=== PATIENT | female | born 1955 | race Caucasian/White ===

== ENCOUNTER 2016-05-26 09:19 | Observation (INO) | payer BC ==
[2016-05-26 10:03] LABS: HEMOGLOBIN 13.3 gm/dl (12.3-15.3); RED BLOOD COUNT 4.02 M/UL (4.00-5.10); WHITE BLOOD COUNT 5.6 K/UL (4.5-11.0)
[2016-05-26 10:27] LABS: BUN/CREATININE RATIO 15 (0-10)
[2016-05-26] MEDS ORDERED: GLUCOPHAGE 500500 MG PO (17:18)
[2016-05-26] MEDS ORDERED: PRILOSEC10 M1 PO (17:19)
[2016-05-26] MEDS ORDERED: GLUCOTROL 10 MG10 MG PO (17:19)
[2016-05-26] MEDS ORDERED: LISINOPRIL10 MG PO (17:20)
[2016-05-26] MEDS ORDERED: ZANTAC150 MG PO (17:21)
[2016-05-26] MEDS ORDERED: IBUPROFEN600 MG PO (17:21)
[2016-05-26] MEDS ORDERED: CLARITIN-D (12 H1 EA PO (17:21)
[2016-05-26 17:24] LABS: BUN/CREATININE RATIO 16 (0-10)
[2016-05-27 05:43] LABS: HEMOGLOBIN 12.8 gm/dl (12.3-15.3); RED BLOOD COUNT 3.88 M/UL (4.00-5.10); WHITE BLOOD COUNT 4.5 K/UL (4.5-11.0)
[2016-05-27 06:05] LABS: BUN/CREATININE RATIO 20 (0-10)
[2016-05-27] MEDS ORDERED: ASPIRIN EC81 MG PO (16:11)
[2016-05-27] MEDS ORDERED: LOPRESSOR 25 MG25 MG PO (16:12)
[2016-05-27] MEDS ORDERED: PRAVASTATIN SOD20 MG PO (16:12)
[2016-05-27] MEDS ORDERED: NITROSTAT0.4 MG SL (16:13)
== END 2016-05-27 17:50 | disposition home or self-care (01) ==
LOC: ER1 09:19 → ZEROF 11:20 → MED SURG 4 16:01 → M/S 16:14 → MED SURG 4 05-27 17:50
PROVIDERS: Emergency Medicine; Family Medicine; ADMIT Family Medicine
DX: I10 Essential (primary) hypertension (principal); R94.39 Abnormal result of other cardiovascular function study; E11.9 Type 2 diabetes mellitus without complications; E78.5 Hyperlipidemia, unspecified; J30.9 Allergic rhinitis, unspecified; M25.512 Pain in left shoulder; F17.210 Nicotine dependence, cigarettes, uncomplicated; Z85.41 Personal history of malignant neoplasm of cervix uteri; Z79.82 Long term (current) use of aspirin; Z79.899 Other long term (current) drug therapy; Z90.710 Acquired absence of both cervix and uterus; Z90.49 Acquired absence of other specified parts of digestive tract; Z82.49 Family history of ischemic heart disease and other diseases of the circulatory system; Z80.1 Family history of malignant neoplasm of trachea, bronchus and lung
CPT/HCPCS: ECHO; 36415; 71010; 78452; 80048; 80053; 80061; 82550; 82553; 82962; 83874; 84439; 84443; 84484; 85025; 93005; 93017; 93306; 99285; A9502; G0378; J2785

== ENCOUNTER 2020-10-01 11:30 | Inpatient (IN) | payer OTHER ==
[~2020-10-01] VITALS: Ht 170.2 cm; Wt 61.2 kg
[~2020-10-01 11:30] MED LIST: ASPIRIN EC81 MG PO; CLARITIN-D (12 H1 EA PO; GLUCOPHAGE XR500 M1 PO; GLUCOTROL 10 MG10 MG PO; IBUPROFEN600 MG PO; JANUVIA100 MG PO; LISINOPRIL10 MG PO; LOPRESSOR 25 MG25 MG PO; NITROSTAT0.4 MG SL; PRAVASTATIN SOD20 MG PO; ZANTAC150 MG PO
[2020-10-01 12:13] LABS: HEMOGLOBIN 15.7 gm/dl (12.3-15.3); RED BLOOD COUNT 4.52 M/UL (4.00-5.10); WHITE BLOOD COUNT 10.2 K/UL (4.5-11.0)
[2020-10-01 13:25] LABS: BUN/CREATININE RATIO 18 (0-10)
[2020-10-01] MEDS ORDERED: AMLODIPINE BESYL5 MG PO (16:22)
[2020-10-01] MEDS ORDERED: CETIRIZINE HCL10 MG PO (16:23)
[2020-10-01] MEDS ORDERED: ACETAMINOPHEN325 MG PO (16:25)
[2020-10-01] MEDS ORDERED: IBUPROFEN200 MG PO (16:25)
[2020-10-01] MEDS ORDERED: FLONASE 0.05% N16 GM (16:26)
[2020-10-01] MEDS ORDERED: PRILOSEC OTC20 MG PO (17:19)
[2020-10-02 02:22] LABS: WHITE BLOOD COUNT 9.1 K/UL (4.5-11.0)
[2020-10-02 02:27] LABS: HEMOGLOBIN 12.9 gm/dl (12.3-15.3); RED BLOOD COUNT 3.72 M/UL (4.00-5.10)
[2020-10-03 03:23] LABS: HEMOGLOBIN 12.2 gm/dl (12.3-15.3); RED BLOOD COUNT 3.6 M/UL (4.00-5.10); WHITE BLOOD COUNT 7.4 K/UL (4.5-11.0)
[2020-10-03 03:35] LABS: BUN/CREATININE RATIO 13 (0-10)
== END 2020-10-03 15:55 | disposition home or self-care (01) | DRG 389 ==
LOC: ER1 11:30 → PROG CARE 13:40 → CDU 13:40 → PROG CARE 18:04 → M/S 10-02 20:34
PROVIDERS: Emergency Medicine; Internal Medicine; ADMIT Internal Medicine
DX: K56.699 Other intestinal obstruction unspecified as to partial versus complete obstruction (principal); E87.2 Acidosis; E86.0 Dehydration; Z20.822 Contact with and (suspected) exposure to COVID-19; E11.9 Type 2 diabetes mellitus without complications; F17.210 Nicotine dependence, cigarettes, uncomplicated; Z79.82 Long term (current) use of aspirin; Z90.710 Acquired absence of both cervix and uterus; Z88.0 Allergy status to penicillin; Z88.2 Allergy status to sulfonamides; Z79.4 Long term (current) use of insulin; Z85.41 Personal history of malignant neoplasm of cervix uteri
CPT/HCPCS: 36415; 80048; 80053; 81001; 82550; 82553; 82962; 83036; 83605; 83690; 83735; 84100; 84132; 84439; 84443; 84484; 84550; 85025; 85027; 86140; 93005; 96374; 96375; 96376; 99285; C9113; J1650; J2185; J2270; J2405; J2550; J3475; J3480; J7030; J7120; U0002

== ENCOUNTER 2021-01-13 11:52 | Inpatient (IN) | payer OTHER ==
[~2021-01-13] VITALS: Ht 170.2 cm; Wt 61.2 kg
[~2021-01-13 11:52] MED LIST changes: +ACETAMINOPHEN325 MG PO; +AMLODIPINE BESYL5 MG PO; +CETIRIZINE HCL10 MG PO; +FLONASE 0.05% N16 GM; +IBUPROFEN200 MG PO; +PRILOSEC OTC20 MG PO
[2021-01-13 13:28] LABS: HEMOGLOBIN 14.5 gm/dl (12.3-15.3); RED BLOOD COUNT 4.19 M/UL (4.00-5.10)
[2021-01-13 13:51] LABS: BUN/CREATININE RATIO 32 (0-10)
[2021-01-13] MEDS ORDERED: LISINOPRIL20 MG PO (16:55)
[2021-01-13] MEDS ORDERED: EYE MULTIVITAM1 EAC1 PO (16:56)
[2021-01-13] MEDS ORDERED: MAGNESIUM OXID400 M1 PO (16:57)
[2021-01-13] MEDS ORDERED: ASPIRIN EC81 MG PO (16:57)
[2021-01-13] MEDS ORDERED: OMEPRAZOLE40 MG PO (16:57)
[2021-01-14 06:25] LABS: HEMOGLOBIN 13.5 gm/dl (12.3-15.3); RED BLOOD COUNT 3.97 M/UL (4.00-5.10); WHITE BLOOD COUNT 9.5 K/UL (4.5-11.0)
[2021-01-14 08:17] LABS: BUN/CREATININE RATIO 26 (0-10)
--- NOTE | 2021-01-15 03:21 | NUR ---
PATIENT HAD LAPAROSCOPIC PROCEDURE FOR SMALL BOWEL OBSTRUCTION, 4 INCISION SITES. 2 ON LEFT 1 IN THE MIDDLE AND 1 ON THE RIGHT SIDE OF HER ABDOMEN. DURING HOURLY ROUNDS THE PATIENT APPEARED TO BE WET. THE PATIENTS RIGHT INCISION SITE WAS DRAINING SEROSANGUINOUS FLUID. ABD DRESSING WAS APPLIED TO THE SITE WITH PAPER TAPE AND THE SURGEON WAS NOTIFIED. DR. LINCOLN INSTRUCTED TO CHANGE DRESSING NEEDED.
[2021-01-15 06:54] LABS: HEMOGLOBIN 12.7 gm/dl (12.3-15.3); RED BLOOD COUNT 3.8 M/UL (4.00-5.10)
[2021-01-15 07:30] LABS: BUN/CREATININE RATIO 13 (0-10)
[2021-01-16 07:39] LABS: HEMOGLOBIN 12.1 gm/dl (12.3-15.3); RED BLOOD COUNT 3.68 M/UL (4.00-5.10); WHITE BLOOD COUNT 10.7 K/UL (4.5-11.0)
[2021-01-16 07:54] LABS: BUN/CREATININE RATIO 14 (0-10)
--- NOTE | 2021-01-16 11:29 | NUR ---
patient refused potassium and magnesium correction
--- NOTE | 2021-01-16 11:31 | NUR ---
patient refused flu vaccine
== END 2021-01-16 11:35 | disposition home or self-care (01) | DRG 330 ==
LOC: ER1 11:52 → CDU 16:11 → M/S 18:33
PROVIDERS: Emergency Medicine; Physician Assistant Medical; Surgery; ADMIT Internal Medicine
PROC: 0DH67UZ Insertion of Feeding Device into Stomach, Via Natural or Artificial Opening (ICD-10-PCS; 2021-01-13)
PROC: 0D1B4ZB Bypass Ileum to Ileum, Percutaneous Endoscopic Approach (ICD-10-PCS; principal; 2021-01-14 15:01)
DX: K56.50 Intestinal adhesions [bands], unspecified as to partial versus complete obstruction (principal); E87.1 Hypo-osmolality and hyponatremia; J98.11 Atelectasis; K52.0 Gastroenteritis and colitis due to radiation; E83.42 Hypomagnesemia; Z20.822 Contact with and (suspected) exposure to COVID-19; E87.6 Hypokalemia; I10 Essential (primary) hypertension; E78.5 Hyperlipidemia, unspecified; K21.9 Gastro-esophageal reflux disease without esophagitis; E11.649 Type 2 diabetes mellitus with hypoglycemia without coma; E11.65 Type 2 diabetes mellitus with hyperglycemia; F17.210 Nicotine dependence, cigarettes, uncomplicated; Z79.82 Long term (current) use of aspirin; Z79.84 Long term (current) use of oral hypoglycemic drugs; Z90.710 Acquired absence of both cervix and uterus; Z88.0 Allergy status to penicillin; Z85.41 Personal history of malignant neoplasm of cervix uteri; Z88.2 Allergy status to sulfonamides
CPT/HCPCS: 36415; 71045; 80048; 80053; 81001; 82436; 82550; 82553; 82962; 83605; 83690; 83735; 83874; 83880; 83935; 84133; 84300; 84484; 85025; 85027; 93005; 94640; 94664; 94760; 96374; 96375; 99285; J1100; J1170; J1885; J1956; J2001; J2250; J2270; J2370; J2405; J2704; J2710; J3010; J7030; Q9967; U0002

== ENCOUNTER → 2021-01-18 | Outpatient (CLI) | payer OTHER ==
[~2021-01-18] MED LIST changes: +EYE MULTIVITAM1 EAC1 PO; +LISINOPRIL20 MG PO; +MAGNESIUM OXID400 M1 PO; +OMEPRAZOLE40 MG PO
[2021-01-18 10:49] LABS: BUN/CREATININE RATIO 13 (0-10)
== END ==
LOC: LAB 09:44
PROVIDERS: Physician Assistant
DX: E87.1 Hypo-osmolality and hyponatremia (principal); E83.42 Hypomagnesemia
CPT/HCPCS: 36415; 80048; 83735

== ENCOUNTER → 2021-01-19 | Outpatient (CLI) | payer OTHER ==
[2021-01-19 13:48] LABS: HEMOGLOBIN 12.1 gm/dl (12.3-15.3); RED BLOOD COUNT 3.6 M/UL (4.00-5.10); WHITE BLOOD COUNT 8.6 K/UL (4.5-11.0)
[2021-01-19 14:09] LABS: BUN/CREATININE RATIO 9 (0-10)
== END ==
LOC: LAB 11:30
PROVIDERS: Nurse Practitioner Family
DX: E87.5 Hyperkalemia (principal)
CPT/HCPCS: 36415; 80053; 85025

== ENCOUNTER → 2021-09-11 | Outpatient (CLI) | payer OTHER | LOC: MAMO 15:00 | DX: Z12.31 Encounter for screening mammogram for malignant neoplasm of breast (principal) | CPT/HCPCS: 77063; 77067 ==